=== PATIENT | female | born 1950 | race Caucasian/White ===

== ENCOUNTER 2021-05-16 16:32 | Emergency (ER) | payer MEDICARE ==
[2021-05-16] MEDS ORDERED: Acetaminophen 325 MG Tab PO ONE (17:22)
[2021-05-16] MEDS ORDERED: Ondansetron 4 MG/2 ML SDV IVPUSH ONE (17:23)
--- NOTE | 2021-05-16 18:28 | EDM.PDOC ---
ED HPI GENERAL MEDICAL PROBLEM - General Chief Complaint: General Stated Complaint: FEVER/L ARM PAIN Time Seen by Provider: 05/16/21 16:55 Source of Information: Reports: Patient History Limitations: Reports: No Limitations - History of Present Illness INITIAL COMMENTS - FREE TEXT/NARRATIVE: 70-year-old female presents to the emergency department with complaints of headache, diarrhea, cough, fever, bilateral arm numbness. Patient states that she is from [place] and was in [place] yesterday attending her mother's . She states that she had diarrhea throughout the day yesterday but did not think much of it. She states that today they have been traveling most of the day when about an hour prior to arrival in the emergency department she developed numbness to her bilateral arms, cough and chills. She states that they elected to stop in the ER. She states that when she arrived in the emergency department she developed headache pain as well. She has also had urinary frequency that started today. The patient states that she had her initial Covid vaccination on October 05, 2020 and then tested positive for Covid on October 11, 2020. Subsequently she has not had her 2nd Covid vaccination and planned on getting it when she returned to [place] from this trip. The patient is concerned she may have the delta variant of Covid. She is not a smoker. 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 She also has a history of hypertension and hyperlipidemia. The patient is not diabetic. Left Arm Pain Score (Numeric/FACES): 2 - Related Data Allergies Allergy/AdvReac Type Severity Reaction Status Date / Time lisinopril Allergy Severe Rash Verified 05/16/21 16:47 Home Meds: Home Meds Valsartan 160 mg PO DAILY 05/16/21 [History] Warfarin [Coumadin] 2 mg PO DAILY 05/16/21 [History] atenoloL [Atenolol] 100 mg PO DAILY 05/16/21 [History] hydroCHLOROthiazide [Hydrochlorothiazide] 2 tab PO DAILY 05/16/21 [History] Past Medical History Cardiovascular History: Reports: Blood Clots/VTE/DVT, Hypertension - Infectious Disease History Infectious Disease History: Reports: Novel Coronavirus - Past Surgical History Female Surgical History: Reports: Section Social & Family History - Tobacco Use Tobacco Use Status *Q: Never Tobacco User Second Hand Smoke Exposure: No - Recreational Drug Use Recreational Drug Use: No ED ROS GENERAL - Review of Systems Review Of Systems: Comprehensive ROS is negative, except as noted in HPI. ED EXAM, GENERAL - Physical Exam Exam: See Below Exam Limited By: No Limitations General Appearance: Alert, WD/WN, No Apparent Distress Ears: Normal External Exam, Hearing Grossly Normal Nose: Normal Inspection Throat/Mouth: Normal Inspection, Normal Lips, Normal Voice, No Airway Compromise Head: Atraumatic Neck: Normal Inspection, Supple, Non-Tender Respiratory/Chest: No Respiratory Distress, Lungs Clear, Normal Breath Sounds, No Accessory Muscle Use, Chest Non-Tender Cardiovascular: Normal Peripheral Pulses, Regular Rate, Rhythm, No Edema, No Murmur Peripheral Pulses: 2+: Radial (L), Radial (R) GI/Abdominal: Normal Bowel Sounds, Soft, Non-Tender, No Distention (Female) Exam: Deferred Rectal (Female) Exam: Deferred Back Exam: Normal Inspection Extremities: Normal Inspection, Normal Range of Motion, Non-Tender, No Pedal Edema, Normal Capillary Refill Neurological: Alert, Oriented, Normal Cognition Psychiatric: Normal Affect, Normal Mood Skin Exam: Warm, Dry, Intact, Normal Color, No Rash Lymphatic: No Adenopathy #1 Interpretation EKG Date: 05/16/21 Time: 18:10 Rhythm: NSR Rate (Beats/Min): 92 Fidelity: Normal P-Wave: Present QRS: Normal ST-T: Normal QT: Normal Comparison: NA - No Prior EKG EKG Interpretation Comments: Per Dr. Best interpretation: Normal sinus rhythm at 92 bpm; normal QRS; no ST changes Course - Vital Signs Text/Narrative:: As stated above the patient presents with diarrhea, chills, cough and headache. She is concerned she may have the delta variant of Covid. Upon assessment the patient skin is very hot to touch. Triage notes state that her temp was 98 0 however I do not believe this is accurate. She will be given 650 mg of Tylenol orally. Her assessment is essentially unremarkable. Lungs are clear. I have ordered labs to include a CBC, CMP, magnesium, C-reactive protein, lactic acid level, LDH, ferritin, D-dimer, PTT, INR, urinalysis with micro and culture if indicated, portable view of the chest, Covid swab, and an EKG. We will give her some Zofran as she states she is nauseated. Last Recorded V/S: Last Vital Signs Temp 101.5 F H 05/16/21 18:50 Pulse 88 05/16/21 16:49 Resp 20 05/16/21 16:49 BP 132/69 05/16/21 16:49 Pulse Ox 97 05/16/21 16:49 - Orders/Labs/Meds Orders: Active Orders 24 hr Category Date Time Status EKG Documentation Completion [RC] STAT Care 05/16/21 17:23 Active Chest 1V Frontal [CR] Stat Exams 05/16/21 17:21 Taken Isolation [COMM] Stat Oth 05/16/21 17:19 Ordered Labs: Laboratory Tests 05/16/21 05/16/21 05/16/21 Range/Units 17:48 17:48 17:48 WBC (3.98-10.04) K/mm3 RBC (3.98-5.22) M/mm3 Hgb (11.2-15.7) gm/dl Hct (34.1-44.9) % MCV (79.4-94.8) fl MCH (25.6-32.2) pg MCHC (32.2-35.5) g/dl RDW Std Deviation (36.4-46.3) fL Plt Count (182-369) K/mm3 MPV (9.4-12.3) fl Neut % (Auto) (34.0-71.1) % Lymph % (Auto) (19.3-51.7) % [place] % (Auto) (4.7-12.5) % Eos % (Auto) (0.7-5.8) Baso % (Auto) (0.1-1.2) % Neut # (Auto) (1.56-6.13) K/mm3 Lymph # (Auto) (1.18-3.74) K/mm3 [place] # (Auto) (0.24-0.36) K/mm3 Eos # (Auto) (0.04-0.36) K/mm3 Baso # (Auto) (0.01-0.08) K/mm3 Manual Slide Review PT 27.0 H (9.7-12.0) SECONDS INR 2.57 APTT 44.1 H (21.7-31.4) SECONDS D-Dimer, Quantitative < 0.19 L (0.19-0.50) mg/L Sodium 141 (136-145) mEq/L Potassium 3.9 (3.5-5.1) mEq/L Chloride 102 (98-107) mEq/L Carbon Dioxide 28 (21-32) mEq/L Anion Gap 14.9 (5-15) BUN 21 H (7-18) mg/dL Creatinine 1.2 H (0.55-1.02) mg/dL Est Cr Clr Drug Dosing 41.81 mL/min Estimated GFR (MDRD) 44 (>60) mL/min BUN/Creatinine Ratio 17.5 (14-18) Glucose 121 H (70-99) mg/dL Lactic Acid (0.4-2.0) mmol/L Calcium 9.1 (8.5-10.1) mg/dL Magnesium 1.7 L (1.8-2.4) mg/dL Ferritin 113 (8-252) ng/ml Total Bilirubin 0.7 (0.2-1.0) mg/dL AST 32 (15-37) U/L ALT 47 (14-59) U/L Alkaline Phosphatase 70 (46-116) U/L Lactate Dehydrogenase 221 (81-234) U/L C-Reactive Protein 1.7 H* (<1.0) mg/dL Total Protein 7.2 (6.4-8.2) g/dl Albumin 3.7 (3.4-5.0) g/dl Globulin 3.5 gm/dL Albumin/Globulin Ratio 1.1 (1-2) Urine Color (Yellow) Urine Appearance (Clear) Urine pH (5.0-8.0) Ur Specific [place] (1.005-1.030) Urine Protein (Negative) Urine Glucose (UA) (Negative) Urine Ketones (Negative) Urine Occult Blood (Negative) Urine Nitrite (Negative) Urine Bilirubin (Negative) Urine Urobilinogen (0.2-1.0) Ur Leukocyte Esterase (Negative) U Hyaline Cast (Auto) (0-5) /lpf Urine RBC (0-5) /hpf Urine WBC (0-5) /hpf Ur Squamous Epith Cells (0-5) /hpf Urine Bacteria (FEW) /hpf Urine Mucus (FEW) /hpf SARS-CoV-2 RNA (JOSE ELIAS) (NEGATIVE) 05/16/21 05/16/2105/16/21 Range/Units 17:48 17:48 17:52 WBC 9.72 (3.98-10.04) K/mm3 RBC 4.36 (3.98-5.22) M/mm3 Hgb 12.3 (11.2-15.7) gm/dl Hct 37.9 (34.1-44.9) % MCV 86.9 (79.4-94.8) fl MCH 28.2 (25.6-32.2) pg MCHC 32.5 (32.2-35.5) g/dl RDW Std Deviation 48.2 H (36.4-46.3) fL Plt Count 271 (182-369) K/mm3 MPV 9.2 L (9.4-12.3) fl Neut % (Auto) 88.5 H (34.0-71.1) % Lymph % (Auto) 6.4 L (19.3-51.7) % [place] % (Auto) 3.6 L (4.7-12.5) % Eos % (Auto) 1.2 (0.7-5.8) Baso % (Auto) 0.2 (0.1-1.2) % Neut # (Auto) 8.60 H (1.56-6.13) K/mm3 Lymph # (Auto) 0.62 L (1.18-3.74) K/mm3 [place] # (Auto) 0.35 (0.24-0.36) K/mm3 Eos # (Auto) 0.12 (0.04-0.36) K/mm3 Baso # (Auto) 0.02 (0.01-0.08) K/mm3 Manual Slide Review Abnormal smear PT (9.7-12.0) SECONDS INR APTT (21.7-31.4) SECONDS D-Dimer, Quantitative (0.19-0.50) mg/L Sodium (136-145) mEq/L Potassium (3.5-5.1) mEq/L Chloride (98-107) mEq/L Carbon Dioxide (21-32) mEq/L Anion Gap (5-15) BUN (7-18) mg/dL Creatinine (0.55-1.02) mg/dL Est Cr Clr Drug Dosing mL/min Estimated GFR (MDRD) (>60) mL/min BUN/Creatinine Ratio (14-18) Glucose (70-99) mg/dL Lactic Acid 2.7 H* (0.4-2.0) mmol/L Calcium (8.5-10.1) mg/dL Magnesium (1.8-2.4) mg/dL Ferritin (8-252) ng/ml Total Bilirubin (0.2-1.0) mg/dL AST (15-37) U/L ALT (14-59) U/L Alkaline Phosphatase (46-116) U/L Lactate Dehydrogenase (81-234) U/L C-Reactive Protein (<1.0) mg/dL Total Protein (6.4-8.2) g/dl Albumin (3.4-5.0) g/dl Globulin gm/dL Albumin/Globulin Ratio (1-2) Urine Color (Yellow) Urine Appearance (Clear) Urine pH (5.0-8.0) Ur Specific [place] (1.005-1.030) Urine Protein (Negative) Urine Glucose (UA) (Negative) Urine Ketones (Negative) Urine Occult Blood (Negative) Urine Nitrite (Negative) Urine Bilirubin (Negative) Urine Urobilinogen (0.2-1.0) Ur Leukocyte Esterase (Negative) U Hyaline Cast (Auto) (0-5) /lpf Urine RBC (0-5) /hpf Urine WBC (0-5) /hpf Ur Squamous Epith Cells (0-5) /hpf Urine Bacteria (FEW) /hpf Urine Mucus (FEW) /hpf SARS-CoV-2 RNA (JOSE ELIAS) Negative (NEGATIVE) 05/16/21 05/16/21 Range/Units 19:03 20:45 WBC (3.98-10.04) K/mm3 RBC (3.98-5.22) M/mm3 Hgb (11.2-15.7) gm/dl Hct (34.1-44.9) % MCV (79.4-94.8) fl MCH (25.6-32.2) pg MCHC (32.2-35.5) g/dl RDW Std Deviation (36.4-46.3) fL Plt Count (182-369) K/mm3 MPV (9.4-12.3) fl Neut % (Auto) (34.0-71.1) % Lymph % (Auto) (19.3-51.7) % [place] % (Auto) (4.7-12.5) % Eos % (Auto) (0.7-5.8) Baso % (Auto) (0.1-1.2) % Neut # (Auto) (1.56-6.13) K/mm3 Lymph # (Auto) (1.18-3.74) K/mm3 [place] # (Auto) (0.24-0.36) K/mm3 Eos # (Auto) (0.04-0.36) K/mm3 Baso # (Auto) (0.01-0.08) K/mm3 Manual Slide Review PT (9.7-12.0) SECONDS INR APTT (21.7-31.4) SECONDS D-Dimer, Quantitative (0.19-0.50) mg/L Sodium (136-145) mEq/L Potassium (3.5-5.1) mEq/L Chloride (98-107) mEq/L Carbon Dioxide (21-32) mEq/L Anion Gap (5-15) BUN (7-18) mg/dL Creatinine (0.55-1.02) mg/dL Est Cr Clr Drug Dosing mL/min Estimated GFR (MDRD) (>60) mL/min BUN/Creatinine Ratio (14-18) Glucose (70-99) mg/dL Lactic Acid 1.2 (0.4-2.0) mmol/L Calcium (8.5-10.1) mg/dL Magnesium (1.8-2.4) mg/dL Ferritin (8-252) ng/ml Total Bilirubin (0.2-1.0) mg/dL AST (15-37) U/L ALT (14-59) U/L Alkaline Phosphatase (46-116) U/L Lactate Dehydrogenase (81-234) U/L C-Reactive Protein (<1.0) mg/dL Total Protein (6.4-8.2) g/dl Albumin (3.4-5.0) g/dl Globulin gm/dL Albumin/Globulin Ratio (1-2) Urine Color Dark yellow (Yellow) Urine Appearance Slt cloudy H (Clear) Urine pH 6.5 (5.0-8.0) Ur Specific [place] 1.025 (1.005-1.030) Urine Protein 2+ H (Negative) Urine Glucose (UA) Negative (Negative) Urine Ketones Negative (Negative) Urine Occult Blood 2+ H (Negative) Urine Nitrite Positive H (Negative) Urine Bilirubin Negative (Negative) Urine Urobilinogen 0.2 (0.2-1.0) Ur Leukocyte Esterase Negative (Negative) U Hyaline Cast (Auto) 0-5 (0-5) /lpf Urine RBC 40-50 H (0-5) /hpf Urine WBC 0-5 (0-5) /hpf Ur Squamous Epith Cells 0-5 (0-5) /hpf Urine Bacteria Moderate H (FEW) /hpf Urine Mucus Not seen (FEW) /hpf SARS-CoV-2 RNA (JOSE ELIAS) (NEGATIVE) Meds: Medications Discontinued Medications Generic Name Dose Route Start Last Admin Trade Name Gama PRN Reason Stop Dose Admin Acetaminophen 650 mg 05/16/21 17:22 05/16/21 17:57 Acetaminophen 325 Mg Tab PO 05/16/21 17:23 650 mg NOW ONE Administration Sodium Chloride 1,000 mls @ 999 mls/hr 05/16/21 19:03 05/16/21 19:39 Normal Saline IV 05/16/21 20:03 999 mls/hr ONETIME ONE Administration Ondansetron HCl 4 mg 05/16/21 17:23 05/16/21 17:57 Ondansetron 4 Mg/2 Ml Sdv IVPUSH 05/16/21 17:24 4 mg ONETIME ONE Administration - Re-Assessments/Exams Free Text/Narrative Re-Assessment/Exam: 05/16/21 19:31 Hematology reveals a WBC of 9.72, hemoglobin 12.3, hematocrit 37.9, platelet count 271 Coagulation reveals a pro time of 27.0, INR 2.57, PTT 44.1, D-dimer less than 0.19 Chemistry reveals a sodium of 141, potassium 3.9, anion gap 14.9, BUN 21, creatinine 1.2, glucose 121, lactic acid 2.7, magnesium level 1.7, ferritin 113, total bilirubin 0.7, AST 32, ALT 47, alk phos 70, LDH 221, C-reactive protein 1.7 Urinalysis reveals 2+ protein, 2+ occult blood, nitrite positive, leukocyte Estrace negative micro is pending Patient is Covid negative Discussed the lab results with the patient. She reports that she is feeling much better. I am unsure of why the patient's lactic acid level would be elevated. Plan is to give her a liter of normal saline and repeat the lactic acid level. If this is trending downward I will allow her to be discharged and travel back home to follow-up with her primary care provider. 05/16/21 19:54 Nothing acute is appreciated on portable view of the chest. Official radiologist report is pending. 05/16/21 21:51 Repeat lactic acid level is 1.2. Patient will be discharged home. Departure - Departure Time of Disposition: 21:52 Disposition: Home, Self-Care 01 Condition: Good Clinical Impression: Fever and chills Headache Qualifiers: Headache type: unspecified Headache chronicity pattern: acute headache Intractability: intractable Qualified Code(s): R51.9 - Headache, unspecified - Discharge Information Referrals: PCP,Not In Area [Primary Care Provider] - Forms: ED Department Discharge Additional Instructions: You were seen in the emergency department today with headache, fever, cough and diarrhea. Labs were completed and your white blood cell count was within normal limits. Your INR was 2.57. Your lactic acid was elevated. I do not know the cause of this however you were given a liter of IV fluids and lactic acid was rechecked and was within normal limits. You likely had some sort of viral infection. Drink plenty of fluids and get some rest. Follow-up with your regular provider in about a week for reevaluation. Sepsis Event Note (ED) - Evaluation Sepsis Screening Result: No Definite Risk - Focused Exam Vital Signs: Vital Signs Temp Temp Pulse Resp BP Pulse Ox 05/16/21 18:50 101.5 F H 05/16/21 16:49 98 F 88 20 132/69 97 - My Orders Last 24 Hours: My Active Orders 05/16/21 17:19 Isolation [COMM] Stat 05/16/21 17:21 Chest 1V Frontal [CR] Stat 05/16/21 17:23 EKG Documentation Completion [RC] STAT - Assessment/Plan Last 24 Hours: My Active Orders 05/16/21 17:19 Isolation [COMM] Stat 05/16/21 17:21 Chest 1V Frontal [CR] Stat 05/16/21 17:23 EKG Documentation Completion [RC] STAT
[2021-05-16] MEDS ORDERED: Sodium Chloride 0.9% 1,000 ML IV ONE (19:03)
--- NOTE | 2021-05-17 07:37 | CR ---
Chest: Portable view of the chest was obtained. Comparison: No prior chest imaging is available. Heart size and mediastinum are normal. Lungs are clear with no acute parenchymal change. Bony structures show nothing definitely acute. Impression: 1. Nothing acute is appreciated on portable chest x-ray. Diagnostic code #1
== END 2021-05-16 22:04 | disposition home or self-care (01) ==
LOC: JD.ED 16:32
DX: R51.9 Headache, unspecified (principal); R50.9 Fever, unspecified; I10 Essential (primary) hypertension; Z86.718 Personal history of other venous thrombosis and embolism; Z88.8 Allergy status to other drugs, medicaments and biological substances; Z79.01 Long term (current) use of anticoagulants; Z79.899 Other long term (current) drug therapy; Z20.822 Contact with and (suspected) exposure to COVID-19
CPT/HCPCS: 36415; 71045; 80053; 81001; 82728; 83605; 83615; 83735; 85025; 85379; 85610; 85730; 86140; 93005; 96374; 99284; A9270; J2405; J7030; U0002; 93010; 99283

== ENCOUNTER 2021-05-18 05:11 | Inpatient (IN) | payer MEDICARE ==
[2021-05-18] MEDS ORDERED: Sodium Chloride 0.9% 1,000 ML IV ONE ×2 (05:51→08:30)
--- NOTE | 2021-05-18 06:08 | EDM.PDOC ---
<Patrice Lira Amy - Last Filed: 05/18/21 06:56> ED HPI GENERAL MEDICAL PROBLEM - General Chief Complaint: Respiratory Problem Stated Complaint: SOB/CHEST PRESSURE Time Seen by Provider: 05/18/21 05:21 Source of Information: Reports: Patient, Family (), Old Records (ED visit 05/16/2021) - History of Present Illness INITIAL COMMENTS - FREE TEXT/NARRATIVE: Mrs. Dimas is a very pleasant 70-year-old woman who states that she received an initial Pfizer COVID vaccination on 10/05/2020, then developed symptoms of a cough, dyspnea, and retrosternal chest pressure on 10/11/2020. She tested positive for the virus on 10/17/2020. She was treated with monoclonal antibodies, but she states that she never fully recovered. The patient and her live in [place], but are in this area in order to attend her mother's in [place]. She was seen in this ED 2 days ago, on 05/16/2021, stating that she had a fever, cough, headache, bilateral arm numbness, diarrhea, and urinary frequency, all of which had developed within 24 hours. She was found to be hemodynamically stable, but with a fever of 101.5 degrees. Her oxygen saturation was 97% on room air. Her physical exam was unremarkable. Work-up included a CBC, CMP, magnesium level, lactic acid level, CRP, LDH, ferritin level, D-dimer, coags, a swab for the SARS-CoV-2 virus, a urinalysis, a portable chest x-ray, and an ECG. Her work-up was grossly unremarkable, but notable for a urinalysis with slightly cloudy appearance, 2+ occult blood with 40-50 RBCs, leukocyte esterase negative with 0- 5 WBCs, nitrite positive with moderate bacteria, and 0-5 squamous epithelial cells. Her initial lactic acid level was modestly elevated at 2.7, but, after 1 L of IV fluid, decreased to 1.2. The remainder of her work-up was unremarkable. After the IV fluid, the patient felt much better, and she was discharged home with a diagnosis of a viral infection. She was instructed to drink plenty of fluids and get rest, then follow-up with her PCP once she returned home. The patient now returns the ED stating that she woke around 3:00 this morning with worsening dyspnea and retrosternal chest pressure, not a pain, both worse when supine. She states that her symptoms are similar to those that she experienced when she had COVID-19 in October, except that she does not currently have a cough like she did back then. She reports having a fever of 100.5 degrees this morning, along with severe chills. She reports having some nausea, but no vomiting. She denies current urinary symptoms. She states that her headache has persisted for the past 2 days. The patient states that she has been taking Tylenol #3 for her pain, with her most recent dose at 23:00 last night. Here in the ED this morning, the patient is found to be hemodynamically stable, afebrile, saturating 90% on room air. She is talkative, in no acute distress. The patient denies having a recent sore throat, ear pain, nasal or sinus congestion, cough, palpitations, vomiting, constipation, abdominal pain, recent weight gain or weight loss, recent bloody bowel movements or black bowel movements, recent joint aches, headaches, or rashes. The patient and her are visiting from [place], [place]. - Related Data Allergies Allergy/AdvReac Type Severity Reaction Status Date / Time lisinopril Allergy Severe Rash Verified 05/18/21 05:19 Home Meds: Home Meds Valsartan 160 mg PO DAILY 05/16/21 [History] Warfarin [Coumadin] 2 mg PO SUMOWEFRSA 05/16/21 [History] atenoloL [Atenolol] 100 mg PO DAILY 05/16/21 [History] hydroCHLOROthiazide [Hydrochlorothiazide] 25 mg PO DAILY 05/16/21 [History] Rosuvastatin Calcium 40 mg PO DAILY 05/18/21 [History] Warfarin [Coumadin] 1 mg PO TUTH 05/18/21 [History] Past Medical History Cardiovascular History: Reports: Blood Clots/VTE/DVT (DVT x 2, on coumadin), High Cholesterol, Hypertension Endocrine/Metabolic History: Reports: Obesity/BMI 30+ Hematologic History: Reports: Other (See Below) (Factor V Leiden mutation) - Infectious Disease History Infectious Disease History: Reports: Novel Coronavirus (dx'd 10/17/2020) - Past Surgical History HEENT Surgical History: Reports: Oral Surgery (dental extractions) Cardiovascular Surgical History: Reports: Vascular Surgery (LLE venous thrombectomy) Female Surgical History: Reports: Section (x 1) Social & Family History - Tobacco Use Tobacco Use Status *Q: Former Tobacco User Years of Tobacco use: 5 Packs/Tins Daily: 0.2 Month/Year Tobacco Last Used: Quit 1971 Tobacco Use Comment: Started smoking 1966 - Alcohol Use Alcohol Use History: Yes Alcohol Use Frequency: Socially - Recreational Drug Use Recreational Drug Use: No - Living Situation & Occupation Living situation: Reports: , with Spouse, with Family (33 yo son) Occupation: Retired (RN) ED ROS GENERAL - Review of Systems Review Of Systems: Comprehensive ROS is negative, except as noted in HPI. ED EXAM, GENERAL - Physical Exam Exam: See Below Exam Limited By: No Limitations General Appearance: Alert, WD/WN, No Apparent Distress Eye Exam: Bilateral Eye: EOMI, Normal Inspection Ears: Normal External Exam, Hearing Grossly Normal Nose: Normal Inspection Throat/Mouth: Normal Inspection, Normal Lips, Normal Voice, No Airway Compromise Head: Atraumatic, Normocephalic Neck: Normal Inspection, Full Range of Motion Respiratory/Chest: No Respiratory Distress, Lungs Clear, Normal Breath Sounds, No Accessory Muscle Use, Chest Non-Tender. No: Decreased Breath Sounds, Crackles, Rhonchi, Wheezing, Stridor, Prolonged Expiration Cardiovascular: Normal Peripheral Pulses, Regular Rate, Rhythm, No Edema, No Gallop, No JVD, No Murmur, No Rub Peripheral Pulses: 3+: Radial (L), Radial (R) GI/Abdominal: Normal Bowel Sounds, Soft, Non-Tender, No Organomegaly, No Distention, No Abnormal Bruit, No Mass Back Exam: Normal Inspection, Full Range of Motion, NT Extremities: Normal Inspection, Normal Range of Motion, No Pedal Edema, Normal Capillary Refill Neurological: Alert, Oriented, Normal Cognition, No Motor/Sensory Deficits Psychiatric: Normal Affect Skin Exam: Warm, Dry, Intact, Normal Color, No Rash #1 Interpretation EKG Date: 05/18/21 Time: 05:25 Rhythm: NSR Rate (Beats/Min): 72 [place]: Normal P-Wave: Present QRS: Other (Late transition) ST-T: Normal QT: Normal Comparison: No Change (05/16/2021) Course - Re-Assessments/Exams Free Text/Narrative Re-Assessment/Exam: 05/18/21 05:52 As above, the patient was diagnosed with COVID-19 on 10/17/2020, and never fully recovered. She was seen in this ED 2 days ago for symptoms of a fever, cough, headache, bilateral arm numbness, diarrhea, and urinary frequency. Her work-up was remarkable for an abnormal urine and a mildly elevated lactic acid level. Unfortunately, no blood or urine cultures were ordered. She felt better following a liter of IV fluid, and was discharged home with no prescriptions, however, has now returned stating that she developed worsening dyspnea and retrosternal chest discomfort, both worse when supine, around 3:00 this morning. She states that she has still had a fever and chills, and that her headache has persisted. She has had nausea without vomiting. Her oxygen saturation is 90% on room air. Her physical exam is unremarkable. An ECG, obtained at triage, shows no ischemic changes. I have ordered a work-up that includes orthostatics, numerous blood tests, 2 sets of blood cultures, an ABG, a swab for the SARS-CoV-2 virus, a urinalysis, and a chest x-ray. In the meantime, the patient will be given a liter of IV fluid. 05/18/21 06:17 The patient is not orthostatic. Notified that the patient's oxygen saturation has decreased to about 86% on room air. We will start some supplemental oxygen. 05/18/21 06:56 Two-view chest radiograph appears to be grossly normal. The cardiac silhouette is within normal limits. No pulmonary vascular congestion. No pleural effusions. No focal infiltrate. No pneumothorax. Formal read per the Radiologist pending. The patient's CBC is remarkable for a Hgb slightly depressed at 11.1, but with a Hct within normal limits at 35.0, with remainder of her CBC being unremarkable. Her CMP is remarkable for a BUN/Cr slightly elevated at 22/1.2, and mild hyperglycemia of 146, with remainder of her CMP being unremarkable. Her magnesium level is within normal limits at 1.8. Her lactic acid level is within normal limits at 1.1. Her TSH is elevated at 7.406. Her CRP is significantly elevated at 10.0. Her troponin is undetectably low. Her INR is subtherapeutic at 1.83. Her ABG represents an acute metabolic alkalosis with concomitant respiratory alkalosis, and hypoxemia. The results of the patient's pro-BNP and swab for the SARS-CoV-2 virus are still pending. The patient has not yet provided a urine sample for the urinalysis. Case discussed with Dr. Clitfon, and care of the patient turned over to him at this time, for change of shift. Departure - Departure Disposition: Admitted As Inpatient 65 Clinical Impression: Acute febrile illness, Hypoxia, Mild congestive heart failure Hypotension Qualifiers: Hypotension type: unspecified hypotension type Qualified Code(s): I95.9 - Hypotension, unspecified Hypothyroidism Qualifiers: Hypothyroidism type: acquired Qualified Code(s): E03.9 - Hypothyroidism, unspecified - Discharge Information Referrals: PCP,Not In Area [Primary Care Provider] - Forms: ED Department Discharge Sepsis Event Note (ED) - Evaluation Sepsis Screening Result: No Definite Risk <Dominic Clifton - Last Filed: 05/18/21 08:50> Course - Vital Signs Last Recorded V/S: Last Vital Signs Temp 37.7 C 05/18/21 07:48 Pulse 73 05/18/21 05:19 Resp 16 05/18/21 05:19 BP 97/61 05/18/21 05:19 Pulse Ox 94 L 05/18/21 06:21 Orthostatic Blood Pressure [ 93/50 Standing] Orthostatic Blood Pressure [ 93/52 Sitting] Orthostatic Blood Pressure [ 105/49 Supine] - Orders/Labs/Meds Orders: Active Orders 24 hr Category Date Time Status EKG Documentation Completion [RC] STAT Care 05/18/21 05:49 Active Orthostatic Vital Signs [RC] STAT Care 05/18/21 05:48 Active BLOOD CULTURE [MREF] Stat Lab 05/18/21 06:15 Received BLOOD CULTURE [MREF] Stat Lab 05/18/21 06:25 Received DD [D-DIMER QUANTITATIVE] [COAG] Stat Lab 05/18/21 05:30 Received Sodium Chloride 0.9% [Normal Saline] 1,000 ml Med 05/18/21 08:30 Active IV ONETIME cefTRIAXone [Rocephin] 2 gm Med 05/18/21 08:18 Active Sodium Chloride 0.9% [Normal Saline] 100 ml IV ONETIME Blood Culture x2 Reflex Set [OM.PC] Stat Oth 05/18/21 05:50 Ordered Medication Orders Ceftriaxone Sodium 2 gm/ (Sodium Chloride) 100 mls @ 200 mls/hr IV ONETIME ONE Stop: 05/18/21 08:47 Last Admin: 05/18/21 08:31 Dose: 200 mls/hr Documented by: RAYSHAWN Sodium Chloride (Normal Saline) 1,000 mls @ 900 mls/hr IV ONETIME ONE Stop: 05/18/21 09:36 Labs: Laboratory Tests 05/18/21 05/18/21 05/18/21 Range/Units 05:30 05:30 05:30 WBC 7.00 (3.98-10.04) K/mm3 RBC 3.95 L (3.98-5.22) M/mm3 Hgb 11.1 L (11.2-15.7) gm/dl Hct 35.0 (34.1-44.9) % MCV 88.6 (79.4-94.8) fl MCH 28.1 (25.6-32.2) pg MCHC 31.7 L (32.2-35.5) g/dl RDW Std Deviation 50.2 H (36.4-46.3) fL Plt Count 235 (182-369) K/mm3 MPV 8.9 L (9.4-12.3) fl Neutrophils % (Manual) 77 H (40-60) % Band Neutrophils % 0 (0-10) % Lymphocytes % (Manual) 16 L (20-40) % Atypical Lymphs % 0 % Monocytes % (Manual) 2 (2-10) % Eosinophils % (Manual) 5 (0.7-5.8) % Basophils % (Manual) 0 L (0.1-1.2) Platelet Estimate Adequate Polychromasia 1+ slight Anisocytosis 1+ sligh RBC Morph Comment Abnormal PT 19.3 H (9.7-12.0) SECONDS INR 1.83 Puncture Site ABG pH (7.35-7.45) ABG pCO2 (35.0-45.0) mmHg ABG pO2 (80.0-100.0) mmHg ABG HCO3 (22.0-26.0) meq/L ABG O2 Saturation (96.0-97.0) % ABG Base Excess (-2-2.0) Moses Test A-a Gradient mmHg O2 Delivery Device FiO2 (21.00-100.00) % Sodium 139 (136-145) mEq/L Potassium 3.8 (3.5-5.1) mEq/L Chloride 101 (98-107) mEq/L Carbon Dioxide 29 (21-32) mEq/L Anion Gap 12.8 (5-15) BUN 22 H (7-18) mg/dL Creatinine 1.2 H (0.55-1.02) mg/dL Est Cr Clr Drug Dosing 41.81 mL/min Estimated GFR (MDRD) 44 (>60) mL/min BUN/Creatinine Ratio 18.3 H (14-18) Glucose 146 H (70-99) mg/dL Lactic Acid (0.4-2.0) mmol/L Calcium 8.5 (8.5-10.1) mg/dL Magnesium 1.8 (1.8-2.4) mg/dL Total Bilirubin 0.9 (0.2-1.0) mg/dL AST 39 H (15-37) U/L ALT 41 (14-59) U/L Alkaline Phosphatase 67 (46-116) U/L Troponin I < 0.017 (0.00-0.056) ng/mL C-Reactive Protein 10.0 H* (<1.0) mg/dL NT-Pro-B Natriuret Pep (0-125) pg/mL Total Protein 6.8 (6.4-8.2) g/dl Albumin 3.2 L (3.4-5.0) g/dl Globulin 3.6 gm/dL Albumin/Globulin Ratio 0.9 L (1-2) TSH 3rd Generation 7.406 H (0.358-3.74) uIU/mL Urine Color (Yellow) Urine Appearance (Clear) Urine pH (5.0-8.0) Ur Specific [place] (1.005-1.030) Urine Protein (Negative) Urine Glucose (UA) (Negative) Urine Ketones (Negative) Urine Occult Blood (Negative) Urine Nitrite (Negative) Urine Bilirubin (Negative) Urine Urobilinogen (0.2-1.0) Ur Leukocyte Esterase (Negative) Urine RBC (0-5) /hpf Urine WBC (0-5) /hpf Ur Epithelial Cells (0-5) /hpf Urine Bacteria (FEW) /hpf Urine Mucus (FEW) /hpf SARS-CoV-2 RNA (JOSE ELIAS) (NEGATIVE) 05/18/21 05/18/21 05/18/21 Range/Units 05:30 05:30 05:57 WBC (3.98-10.04) K/mm3 RBC (3.98-5.22) M/mm3 Hgb (11.2-15.7) gm/dl Hct (34.1-44.9) % MCV (79.4-94.8) fl MCH (25.6-32.2) pg MCHC (32.2-35.5) g/dl RDW Std Deviation (36.4-46.3) fL Plt Count (182-369) K/mm3 MPV (9.4-12.3) fl Neutrophils % (Manual) (40-60) % Band Neutrophils % (0-10) % Lymphocytes % (Manual) (20-40) % Atypical Lymphs % % Monocytes % (Manual) (2-10) % Eosinophils % (Manual) (0.7-5.8) % Basophils % (Manual) (0.1-1.2) Platelet Estimate Polychromasia Anisocytosis RBC Morph Comment PT (9.7-12.0) SECONDS INR Puncture Site ABG pH (7.35-7.45) ABG pCO2 (35.0-45.0) mmHg ABG pO2 (80.0-100.0) mmHg ABG HCO3 (22.0-26.0) meq/L ABG O2 Saturation (96.0-97.0) % ABG Base Excess (-2-2.0) Moses Test A-a Gradient mmHg O2 Delivery Device FiO2 (21.00-100.00) % Sodium (136-145) mEq/L Potassium (3.5-5.1) mEq/L Chloride (98-107) mEq/L Carbon Dioxide (21-32) mEq/L Anion Gap (5-15) BUN (7-18) mg/dL Creatinine (0.55-1.02) mg/dL Est Cr Clr Drug Dosing mL/min Estimated GFR (MDRD) (>60) mL/min BUN/Creatinine Ratio (14-18) Glucose (70-99) mg/dL Lactic Acid 1.1 (0.4-2.0) mmol/L Calcium (8.5-10.1) mg/dL Magnesium (1.8-2.4) mg/dL Total Bilirubin (0.2-1.0) mg/dL AST (15-37) U/L ALT (14-59) U/L Alkaline Phosphatase (46-116) U/L Troponin I (0.00-0.056) ng/mL C-Reactive Protein (<1.0) mg/dL NT-Pro-B Natriuret Pep 662 H (0-125) pg/mL Total Protein (6.4-8.2) g/dl Albumin (3.4-5.0) g/dl Globulin gm/dL Albumin/Globulin Ratio (1-2) TSH 3rd Generation (0.358-3.74) uIU/mL Urine Color (Yellow) Urine Appearance (Clear) Urine pH (5.0-8.0) Ur Specific [place] (1.005-1.030) Urine Protein (Negative) Urine Glucose (UA) (Negative) Urine Ketones (Negative) Urine Occult Blood (Negative) Urine Nitrite (Negative) Urine Bilirubin (Negative) Urine Urobilinogen (0.2-1.0) Ur Leukocyte Esterase (Negative) Urine RBC (0-5) /hpf Urine WBC (0-5) /hpf Ur Epithelial Cells (0-5) /hpf Urine Bacteria (FEW) /hpf Urine Mucus (FEW) /hpf SARS-CoV-2 RNA (JOSE ELIAS) Negative (NEGATIVE) 05/18/21 05/18/21 Range/Units 06:00 08:03 WBC (3.98-10.04) K/mm3 RBC (3.98-5.22) M/mm3 Hgb (11.2-15.7) gm/dl Hct (34.1-44.9) % MCV (79.4-94.8) fl MCH (25.6-32.2) pg MCHC (32.2-35.5) g/dl RDW Std Deviation (36.4-46.3) fL Plt Count (182-369) K/mm3 MPV (9.4-12.3) fl Neutrophils % (Manual) (40-60) % Band Neutrophils % (0-10) % Lymphocytes % (Manual) (20-40) % Atypical Lymphs % % Monocytes % (Manual) (2-10) % Eosinophils % (Manual) (0.7-5.8) % Basophils % (Manual) (0.1-1.2) Platelet Estimate Polychromasia Anisocytosis RBC Morph Comment PT (9.7-12.0) SECONDS INR Puncture Site Lt radial ABG pH 7.46 H (7.35-7.45) ABG pCO2 37.5 (35.0-45.0) mmHg ABG pO2 62.0 L (80.0-100.0) mmHg ABG HCO3 26.2 H (22.0-26.0) meq/L ABG O2 Saturation 90.9 L (96.0-97.0) % ABG Base Excess 2.8 H (-2-2.0) Moses Test Positive A-a Gradient 40 mmHg O2 Delivery Device Room air FiO2 21.00 (21.00-100.00) % Sodium (136-145) mEq/L Potassium (3.5-5.1) mEq/L Chloride (98-107) mEq/L Carbon Dioxide (21-32) mEq/L Anion Gap (5-15) BUN (7-18) mg/dL Creatinine (0.55-1.02) mg/dL Est Cr Clr Drug Dosing mL/min Estimated GFR (MDRD) (>60) mL/min BUN/Creatinine Ratio (14-18) Glucose (70-99) mg/dL Lactic Acid (0.4-2.0) mmol/L Calcium (8.5-10.1) mg/dL Magnesium (1.8-2.4) mg/dL Total Bilirubin (0.2-1.0) mg/dL AST (15-37) U/L ALT (14-59) U/L Alkaline Phosphatase (46-116) U/L Troponin I (0.00-0.056) ng/mL C-Reactive Protein (<1.0) mg/dL NT-Pro-B Natriuret Pep (0-125) pg/mL Total Protein (6.4-8.2) g/dl Albumin (3.4-5.0) g/dl Globulin gm/dL Albumin/Globulin Ratio (1-2) TSH 3rd Generation (0.358-3.74) uIU/mL Urine Color Trevor H (Yellow) Urine Appearance Clear (Clear) Urine pH 5.5 (5.0-8.0) Ur Specific [place] 1.015 (1.005-1.030) Urine Protein 1+ H (Negative) Urine Glucose (UA) Trace H (Negative) Urine Ketones Negative (Negative) Urine Occult Blood 1+ H (Negative) Urine Nitrite Positive H (Negative) Urine Bilirubin Negative (Negative) Urine Urobilinogen 1.0 (0.2-1.0) Ur Leukocyte Esterase Negative (Negative) Urine RBC 20-30 H (0-5) /hpf Urine WBC 0-5 (0-5) /hpf Ur Epithelial Cells 0-5 (0-5) /hpf Urine Bacteria Few (FEW) /hpf Urine Mucus Few (FEW) /hpf SARS-CoV-2 RNA (JOSE ELIAS) (NEGATIVE) Meds: Medications Generic Name Dose Route Start Last Admin Trade Name Freq PRN Reason Stop Dose Admin Ceftriaxone Sodium 2 gm/ 100 mls @ 200 mls/hr 05/18/21 08:18 05/18/21 08:31 Sodium Chloride IV 05/18/21 08:47 200 mls/hr ONETIME ONE Administration Sodium Chloride 1,000 mls @ 900 mls/hr 05/18/21 08:30 Normal Saline IV 05/18/21 09:36 ONETIME ONE Discontinued Medications Generic Name Dose Route Start Last Admin Trade Name Freq PRN Reason Stop Dose Admin Acetaminophen 975 mg 05/18/21 07:37 05/18/21 07:48 Acetaminophen 325 Mg Tab PO 05/18/21 07:38 975 mg ONETIME ONE Administration Furosemide 40 mg 05/18/21 07:37 05/18/21 07:49 Furosemide 40 Mg/4 Ml Vial IVPUSH 05/18/21 07:38 40 mg NOW ONE Administration Sodium Chloride 1,000 mls @ 999 mls/hr 05/18/21 05:51 05/18/21 06:03 Normal Saline IV 05/18/21 06:51 999 mls/hr ONETIME ONE Administration Levothyroxine Sodium 75 mcg 05/18/21 07:40 05/18/21 07:48 Levothyroxine 75 Mcg Tab PO 05/18/21 07:41 75 mcg ONETIME ONE Administration - Re-Assessments/Exams Free Text/Narrative Re-Assessment/Exam: 05/18/21 07:[address] Lira at change of shift. Labs reviewed. Subclinical hypothyroidism. Patient's BNP is mildly elevated at 662. Urinalysis is pending as is the COVID-19 status. 05/18/21 07:31 COVID-19 screen is negative as well. I have discussed the findings of the current labs with the patient and her . On examination she is indeed febrile. She will be given Tylenol 975 mg p.o. We will give her Lasix 40 mg IV due to mild CHF with a BNP of 662. This should produce a urine for analysis with concerns for possible UTI. She will need to be started on a dose of levothyroxine as well. I will give her 75 mcg of levothyroxine orally now. 05/18/21 08:20 Patient has voided and the urine is quite orange in color. She reports she is taking Azo which may alter the urinalysis. O2 sats are 88 to 90% on room air. On 2 L she is 94 to 95%. BP is 90/68. She is normally hypertensive. She has been running low however. Concern for possible underlying sepsis developing with fever, elevated CRP, hypoxia, and hypotension. I am going to start her on Rocephin 2 g IV due to fever and elevated CRP sug gesting underlying bacterial infection which at this point time is of unclear origin. She did complete a liter of IV fluids. I am going to start her on normal saline at 900 mils an hour with Rocephin. I will speak to Dr. Aguilar--on-call hospitalist in regards to admission. 05/18/21 08:44 I have spoken with Dr. Aguilar and the plan will be to admit the patient to med surgery at this time.Urinalysis shows it to be trevor in color 1+ proteinuria trace of glucose 1+ occult blood positive nitrate negative leukocyte esterase with 20-30 RBCs per high-power field and 0-5 white blood cells. Source of infection is unclear. Concern for developing sepsis. Hopefully will show up on blood culture. Departure - Departure Time of Disposition: 08:47 Condition: Fair - Discharge Information *PRESCRIPTION DRUG MONITORING PROGRAM REVIEWED*: Not Applicable *COPY OF PRESCRIPTION DRUG MONITORING REPORT IN PATIENT HENRIQUE: Not Applicable Sepsis Event Note (ED) - Focused Exam Vital Signs: Vital Signs Temp Temp Pulse Resp BP Pulse Ox 05/18/21 07:48 37.7 C 05/18/21 06:21 94 L 05/18/21 05:19 36.5 C 73 16 97/61 90 L - My Orders Last 24 Hours: My Active Orders 05/18/21 05:30 DD [D-DIMER QUANTITATIVE] [COAG] Stat 05/18/21 08:18 cefTRIAXone [Rocephin] 2 gm Sodium Chloride 0.9% [Normal Saline] 100 ml IV ONETIME 05/18/21 08:30 Sodium Chloride 0.9% [Normal Saline] 1,000 ml IV ONETIME - Assessment/Plan Last 24 Hours: My Active Orders 05/18/21 05:30 DD [D-DIMER QUANTITATIVE] [COAG] Stat 05/18/21 08:18 cefTRIAXone [Rocephin] 2 gm Sodium Chloride 0.9% [Normal Saline] 100 ml IV ONETIME 05/18/21 08:30 Sodium Chloride 0.9% [Normal Saline] 1,000 ml IV ONETIME
[2021-05-18] MEDS ORDERED: Furosemide 40 MG/4 ML VIAL IVPUSH ONE (07:37)
[2021-05-18] MEDS ORDERED: Acetaminophen 325 MG Tab PO ONE (07:37)
[2021-05-18] MEDS ORDERED: Levothyroxine 75 MCG Tab PO ONE (07:40)
--- NOTE | 2021-05-18 07:57 | CR ---
Chest: 2 views of the chest were obtained. Comparison: Prior chest x-ray of 05/16/21. Heart size and mediastinum are within normal limits. Lung markings are slightly increased which appear to be stable from prior chest x-ray. No acute parenchymal change is seen. Mild scattered disc space narrowing within the spine with endplate osteophytes. Mild scoliosis is noted. Impression: 1. Stable chest x-ray from previous exam. 2. Nothing acute is definitely appreciated. Diagnostic code #2
[2021-05-18] MEDS ORDERED: cefTRIAXone 2 GM in Sodium Chloride 0.9% 100 ML IV ONE (08:18)
[2021-05-18] MEDS ORDERED: oxyCODONE 5 MG Tab PO PRN (09:18)
[2021-05-18] MEDS ORDERED: Ondansetron 4 MG/2 ML SDV IV PRN (09:18)
[2021-05-18] MEDS ORDERED: Heparin Sodium 5,000 Units/ML Vial SUBCUT SCH (09:30)
[2021-05-18] MEDS ORDERED: Lactated Ringers 1,000 ML IV SCH (09:30)
[2021-05-18] MEDS ORDERED: Morphine 2 MG/ML SYRINGE IVPUSH PRN (10:08)
[2021-05-18] MEDS ORDERED: Sennosides 8.6 MG Tab PO PRN (13:00)
--- NOTE | 2021-05-18 13:02 | PCM.HP.2 ---
H&P History of Present Illness - General Date of Service: 05/18/21 Admit Problem/Dx: Admission Diagnosis/Problem Admission Diagnosis/Problem Fever Source of Information: Patient History Limitations: Reports: No Limitations - History of Present Illness Initial Comments - Free Text/Narative: This is a 70F with PMhx noted below including hx of DVT (On warfarin), hx of COVID 19 PNA in October presenting for evaluation of Fever. The patient was seen in ED two days ago for evaluation of fever. She was ultimately discharged home. She has been commuting from [facility] to attend a in [place]. She has traveled by car. Today she developed a recurrent fever and thus presented back to ED for evaluation. She was noted to be hypoxic requiring supplemental oxygen. She denies chest pain but endorses chest pressure. She denies SOB. She endorses dysuria. In the ED her BNP was initially elevated. She was given lasix but subsequently became hypotensive and thus IVF was started. Her WBC and Lactate where WNL. She was started on ceftriaxone and admitted for further evaluation. - Related Data Allergies/Adverse Reactions: Allergies Allergy/AdvReac Type Severity Reaction Status Date / Time lisinopril Allergy Severe Rash Verified 05/18/21 05:19 Home Medications: Home Meds Valsartan 160 mg PO DAILY 05/16/21 [History] Warfarin [Coumadin] 1 - 2 mg PO ASDIRECTED 05/16/21 [History] atenoloL [Atenolol] 100 mg PO DAILY 05/16/21 [History] hydroCHLOROthiazide [Hydrochlorothiazide] 25 mg PO DAILY 05/16/21 [History] Phenazopyridine HCl [Pyridium] 1 tab PO DAILY 05/18/21 [History] Rosuvastatin Calcium 40 mg PO DAILY 05/18/21 [History] Past Medical History HEENT History: Reports: Other (See Below) Other HEENT History: dry eyes Cardiovascular History: Reports: Blood Clots/VTE/DVT, High Cholesterol, Hypertension, Other (See Below) Other Cardiovascular History: high triglycerides Respiratory History: Reports: Bronchitis, Recurrent Gastrointestinal History: Reports: Chronic Constipation Genitourinary History: Reports: Retention, Urinary Endocrine/Metabolic History: Reports: Diabetes, Gestational, Obesity/BMI 30+, Other (See Below) Other Endocrine/Metabolic History: prediabetic Hematologic History: Reports: Other (See Below) Other Hematologic History: Factor V, blood clots - Infectious Disease History Infectious Disease History: Reports: Novel Coronavirus Other Infectious Disease History: COVID 10/2020 - Past Surgical History HEENT Surgical History: Reports: Oral Surgery Cardiovascular Surgical History: Reports: Vascular Surgery Female Surgical History: Reports: Section Social & Family History - Family History Cardiac: Reports: [place], Other (See Below) Other Cardiac Family History: heart stents - Tobacco Use Tobacco Use Status *Q: Former Tobacco User Years of Tobacco use: 5 Packs/Tins Daily: 0.2 Used Tobacco, but Quit: Yes Month/Year Tobacco Last Used: 1976 Tobacco Use Comment: Started smoking 1966 - Caffeine Use Caffeine Use: Reports: Coffee, Soda, Tea - Alcohol Use Days Per Week of Alcohol Use: 1 Number of Drinks Per Day: 1 Total Drinks Per Week: 1 Date of Last Drink: 05/16/21 Time of Last Drink: 19:00 - Recreational Drug Use Recreational Drug Use: Yes Drug Use in Last 12 Months: No Recreational Drug Type: Reports: Marijuana/Hashish Recreational Drug Use Frequency: Not Used In Over 6 Months Recreational Drug Last Use: 1969 - Living Situation & Occupation Living situation: Reports: , with Spouse, with Family (33 yo son) Occupation: Retired (RN) H&P Review of Systems - Review of Systems: Review Of Systems: Comprehensive ROS is negative, except as noted in HPI. Exam - Exam Exam: See Below - Vital Signs Vital Signs: Last Vital Signs Temp 98.4 F 05/18/21 12:19 Pulse 64 05/18/21 12:25 Resp 20 05/18/21 12:19 BP 119/93 H 05/18/21 12:25 Pulse Ox 97 05/18/21 12:25 Orthostatic Blood Pressure [ 93/50 Standing] Orthostatic Blood Pressure [ 93/52 Sitting] Orthostatic Blood Pressure [ 105/49 Supine] Weight: 221 lb - Exam Quality Assessment: Supplemental Oxygen General: Alert, Oriented, Cooperative HEENT: Conjunctiva Clear, EOMI, Mucosa Moist & [place], Nares Patent Neck: Supple Lungs: Clear to Auscultation, Normal Respiratory Effort Cardiovascular: Regular Rhythm, Normal S1, Normal S2 GI/Abdominal Exam: Soft, Non-Tender, No Distention Extremities: Normal Inspection, No Pedal Edema Skin: Warm, Dry, Intact Neurological: Cranial Nerves Intact, Normal Speech Neuro Extensive - Mental Status: Alert, Oriented x3, Normal Mood/Affect, Normal Cognition, Memory Intact Neuro Extensive - Motor, Sensory, Reflexes: CN II-XII Intact Psychiatric: Alert, Normal Affect, Normal Mood - Patient Data Lab Results Last 24 hrs: Laboratory Results - last 24 hr 05/18/21 05/18/21 05/18/21 Range/Units 05:30 05:30 05:30 WBC 7.00 (3.98-10.04) K/mm3 RBC 3.95 L (3.98-5.22) M/mm3 Hgb 11.1 L (11.2-15.7) gm/dl Hct 35.0 (34.1-44.9) % MCV 88.6 (79.4-94.8) fl MCH 28.1 (25.6-32.2) pg MCHC 31.7 L (32.2-35.5) g/dl RDW Std Deviation 50.2 H (36.4-46.3) fL Plt Count 235 (182-369) K/mm3 MPV 8.9 L (9.4-12.3) fl Neutrophils % (Manual) 77 H (40-60) % Band Neutrophils % 0 (0-10) % Lymphocytes % (Manual) 16 L (20-40) % Atypical Lymphs % 0 % Monocytes % (Manual) 2 (2-10) % Eosinophils % (Manual) 5 (0.7-5.8) % Basophils % (Manual) 0 L (0.1-1.2) Platelet Estimate Adequate Polychromasia 1+ slight Anisocytosis 1+ sligh RBC Morph Comment Abnormal PT 19.3 H (9.7-12.0) SECONDS INR 1.83 D-Dimer, Quantitative (0.19-0.50) mg/L Puncture Site ABG pH (7.35-7.45) ABG pCO2 (35.0-45.0) mmHg ABG pO2 (80.0-100.0) mmHg ABG HCO3 (22.0-26.0) meq/L ABG O2 Saturation (96.0-97.0) % ABG Base Excess (-2-2.0) Moses Test A-a Gradient mmHg O2 Delivery Device FiO2 (21.00-100.00) % Sodium 139 (136-145) mEq/L Potassium 3.8 (3.5-5.1) mEq/L Chloride 101 (98-107) mEq/L Carbon Dioxide 29 (21-32) mEq/L Anion Gap 12.8 (5-15) BUN 22 H (7-18) mg/dL Creatinine 1.2 H (0.55-1.02) mg/dL Est Cr Clr Drug Dosing 41.81 mL/min Estimated GFR (MDRD) 44 (>60) mL/min BUN/Creatinine Ratio 18.3 H (14-18) Glucose 146 H (70-99) mg/dL Lactic Acid (0.4-2.0) mmol/L Calcium 8.5 (8.5-10.1) mg/dL Magnesium 1.8 (1.8-2.4) mg/dL Total Bilirubin 0.9 (0.2-1.0) mg/dL AST 39 H (15-37) U/L ALT 41 (14-59) U/L Alkaline Phosphatase 67 (46-116) U/L Troponin I < 0.017 (0.00-0.056) ng/mL C-Reactive Protein 10.0 H* (<1.0) mg/dL NT-Pro-B Natriuret Pep (0-125) pg/mL Total Protein 6.8 (6.4-8.2) g/dl Albumin 3.2 L (3.4-5.0) g/dl Globulin 3.6 gm/dL Albumin/Globulin Ratio 0.9 L (1-2) TSH 3rd Generation 7.406 H (0.358-3.74) uIU/mL Urine Color (Yellow) Urine Appearance (Clear) Urine pH (5.0-8.0) Ur Specific [place] (1.005-1.030) Urine Protein (Negative) Urine Glucose (UA) (Negative) Urine Ketones (Negative) Urine Occult Blood (Negative) Urine Nitrite (Negative) Urine Bilirubin (Negative) Urine Urobilinogen (0.2-1.0) Ur Leukocyte Esterase (Negative) Urine RBC (0-5) /hpf Urine WBC (0-5) /hpf Ur Epithelial Cells (0-5) /hpf Urine Bacteria (FEW) /hpf Urine Mucus (FEW) /hpf SARS-CoV-2 RNA (JOSE ELIAS) (NEGATIVE) 08/03/21 08/03/21 08/03/21 Range/Units 05:30 05:30 05:30 WBC (3.98-10.04) K/mm3 RBC (3.98-5.22) M/mm3 Hgb (11.2-15.7) gm/dl Hct (34.1-44.9) % MCV (79.4-94.8) fl MCH (25.6-32.2) pg MCHC (32.2-35.5) g/dl RDW Std Deviation (36.4-46.3) fL Plt Count (182-369) K/mm3 MPV (9.4-12.3) fl Neutrophils % (Manual) (40-60) % Band Neutrophils % (0-10) % Lymphocytes % (Manual) (20-40) % Atypical Lymphs % % Monocytes % (Manual) (2-10) % Eosinophils % (Manual) (0.7-5.8) % Basophils % (Manual) (0.1-1.2) Platelet Estimate Polychromasia Anisocytosis RBC Morph Comment PT (9.7-12.0) SECONDS INR D-Dimer, Quantitative 0.33 (0.19-0.50) mg/L Puncture Site ABG pH (7.35-7.45) ABG pCO2 (35.0-45.0) mmHg ABG pO2 (80.0-100.0) mmHg ABG HCO3 (22.0-26.0) meq/L ABG O2 Saturation (96.0-97.0) % ABG Base Excess (-2-2.0) Moses Test A-a Gradient mmHg O2 Delivery Device FiO2 (21.00-100.00) % Sodium (136-145) mEq/L Potassium (3.5-5.1) mEq/L Chloride (98-107) mEq/L Carbon Dioxide (21-32) mEq/L Anion Gap (5-15) BUN (7-18) mg/dL Creatinine (0.55-1.02) mg/dL Est Cr Clr Drug Dosing mL/min Estimated GFR (MDRD) (>60) mL/min BUN/Creatinine Ratio (14-18) Glucose (70-99) mg/dL Lactic Acid 1.1 (0.4-2.0) mmol/L Calcium (8.5-10.1) mg/dL Magnesium (1.8-2.4) mg/dL Total Bilirubin (0.2-1.0) mg/dL AST (15-37) U/L ALT (14-59) U/L Alkaline Phosphatase (46-116) U/L Troponin I (0.00-0.056) ng/mL C-Reactive Protein (<1.0) mg/dL NT-Pro-B Natriuret Pep 662 H (0-125) pg/mL Total Protein (6.4-8.2) g/dl Albumin (3.4-5.0) g/dl Globulin gm/dL Albumin/Globulin Ratio (1-2) TSH 3rd Generation (0.358-3.74) uIU/mL Urine Color (Yellow) Urine Appearance (Clear) Urine pH (5.0-8.0) Ur Specific [place] (1.005-1.030) Urine Protein (Negative) Urine Glucose (UA) (Negative) Urine Ketones (Negative) Urine Occult Blood (Negative) Urine Nitrite (Negative) Urine Bilirubin (Negative) Urine Urobilinogen (0.2-1.0) Ur Leukocyte Esterase (Negative) Urine RBC (0-5) /hpf Urine WBC (0-5) /hpf Ur Epithelial Cells (0-5) /hpf Urine Bacteria (FEW) /hpf Urine Mucus (FEW) /hpf SARS-CoV-2 RNA (JOSE ELIAS) (NEGATIVE) 05/18/21 05/18/21 05/18/21 Range/Units 05:57 06:00 08:03 WBC (3.98-10.04) K/mm3 RBC (3.98-5.22) M/mm3 Hgb (11.2-15.7) gm/dl Hct (34.1-44.9) % MCV (79.4-94.8) fl MCH (25.6-32.2) pg MCHC (32.2-35.5) g/dl RDW Std Deviation (36.4-46.3) fL Plt Count (182-369) K/mm3 MPV (9.4-12.3) fl Neutrophils % (Manual) (40-60) % Band Neutrophils % (0-10) % Lymphocytes % (Manual) (20-40) % Atypical Lymphs % % Monocytes % (Manual) (2-10) % Eosinophils % (Manual) (0.7-5.8) % Basophils % (Manual) (0.1-1.2) Platelet Estimate Polychromasia Anisocytosis RBC Morph Comment PT (9.7-12.0) SECONDS INR D-Dimer, Quantitative (0.19-0.50) mg/L Puncture Site Lt radial ABG pH 7.46 H (7.35-7.45) ABG pCO2 37.5 (35.0-45.0) mmHg ABG pO2 62.0 L (80.0-100.0) mmHg ABG HCO3 26.2 H (22.0-26.0) meq/L ABG O2 Saturation 90.9 L (96.0-97.0) % ABG Base Excess 2.8 H (-2-2.0) Moses Test Positive A-a Gradient 40 mmHg O2 Delivery Device Room air FiO2 21.00 (21.00-100.00) % Sodium (136-145) mEq/L Potassium (3.5-5.1) mEq/L Chloride (98-107) mEq/L Carbon Dioxide (21-32) mEq/L Anion Gap (5-15) BUN (7-18) mg/dL Creatinine (0.55-1.02) mg/dL Est Cr Clr Drug Dosing mL/min Estimated GFR (MDRD) (>60) mL/min BUN/Creatinine Ratio (14-18) Glucose (70-99) mg/dL Lactic Acid (0.4-2.0) mmol/L Calcium (8.5-10.1) mg/dL Magnesium (1.8-2.4) mg/dL Total Bilirubin (0.2-1.0) mg/dL AST (15-37) U/L ALT (14-59) U/L Alkaline Phosphatase (46-116) U/L Troponin I (0.00-0.056) ng/mL C-Reactive Protein (<1.0) mg/dL NT-Pro-B Natriuret Pep (0-125) pg/mL Total Protein (6.4-8.2) g/dl Albumin (3.4-5.0) g/dl Globulin gm/dL Albumin/Globulin Ratio (1-2) TSH 3rd Generation (0.358-3.74) uIU/mL Urine Color Nida H (Yellow) Urine Appearance Clear (Clear) Urine pH 5.5 (5.0-8.0) Ur Specific [place] 1.015 (1.005-1.030) Urine Protein 1+ H (Negative) Urine Glucose (UA) Trace H (Negative) Urine Ketones Negative (Negative) Urine Occult Blood 1+ H (Negative) Urine Nitrite Positive H (Negative) Urine Bilirubin Negative (Negative) Urine Urobilinogen 1.0 (0.2-1.0) Ur Leukocyte Esterase Negative (Negative) Urine RBC 20-30 H (0-5) /hpf Urine WBC 0-5 (0-5) /hpf Ur Epithelial Cells 0-5 (0-5) /hpf Urine Bacteria Few (FEW) /hpf Urine Mucus Few (FEW) /hpf SARS-CoV-2 RNA (JOSE ELIAS) Negative (NEGATIVE) 05/18/21 Range/Units 11:00 WBC (3.98-10.04) K/mm3 RBC (3.98-5.22) M/mm3 Hgb (11.2-15.7) gm/dl Hct (34.1-44.9) % MCV (79.4-94.8) fl MCH (25.6-32.2) pg MCHC (32.2-35.5) g/dl RDW Std Deviation (36.4-46.3) fL Plt Count (182-369) K/mm3 MPV (9.4-12.3) fl Neutrophils % (Manual) (40-60) % Band Neutrophils % (0-10) % Lymphocytes % (Manual) (20-40) % Atypical Lymphs % % Monocytes % (Manual) (2-10) % Eosinophils % (Manual) (0.7-5.8) % Basophils % (Manual) (0.1-1.2) Platelet Estimate Polychromasia Anisocytosis RBC Morph Comment PT (9.7-12.0) SECONDS INR D-Dimer, Quantitative (0.19-0.50) mg/L Puncture Site ABG pH (7.35-7.45) ABG pCO2 (35.0-45.0) mmHg ABG pO2 (80.0-100.0) mmHg ABG HCO3 (22.0-26.0) meq/L ABG O2 Saturation (96.0-97.0) % ABG Base Excess (-2-2.0) Moses Test A-a Gradient mmHg O2 Delivery Device FiO2 (21.00-100.00) % Sodium (136-145) mEq/L Potassium (3.5-5.1) mEq/L Chloride (98-107) mEq/L Carbon Dioxide (21-32) mEq/L Anion Gap (5-15) BUN (7-18) mg/dL Creatinine (0.55-1.02) mg/dL Est Cr Clr Drug Dosing mL/min Estimated GFR (MDRD) (>60) mL/min BUN/Creatinine Ratio (14-18) Glucose (70-99) mg/dL Lactic Acid (0.4-2.0) mmol/L Calcium (8.5-10.1) mg/dL Magnesium (1.8-2.4) mg/dL Total Bilirubin (0.2-1.0) mg/dL AST (15-37) U/L ALT (14-59) U/L Alkaline Phosphatase (46-116) U/L Troponin I < 0.017 (0.00-0.056) ng/mL C-Reactive Protein (<1.0) mg/dL NT-Pro-B Natriuret Pep (0-125) pg/mL Total Protein (6.4-8.2) g/dl Albumin (3.4-5.0) g/dl Globulin gm/dL Albumin/Globulin Ratio (1-2) TSH 3rd Generation (0.358-3.74) uIU/mL Urine Color (Yellow) Urine Appearance (Clear) Urine pH (5.0-8.0) Ur Specific [place] (1.005-1.030) Urine Protein (Negative) Urine Glucose (UA) (Negative) Urine Ketones (Negative) Urine Occult Blood (Negative) Urine Nitrite (Negative) Urine Bilirubin (Negative) Urine Urobilinogen (0.2-1.0) Ur Leukocyte Esterase (Negative) Urine RBC (0-5) /hpf Urine WBC (0-5) /hpf Ur Epithelial Cells (0-5) /hpf Urine Bacteria (FEW) /hpf Urine Mucus (FEW) /hpf SARS-CoV-2 RNA (JOSE ELIAS) (NEGATIVE) Result Diagrams: 05/18/21 05:30 05/18/21 05:30 Sepsis Event Note - Evaluation Sepsis Screening Result: No Definite Risk - Focused Exam Vital Signs: Vital Signs Temp Temp Pulse Pulse Resp BP BP 05/18/21 12:25 64 119/93 H 05/18/21 12:19 98.4 F 65 20 05/18/21 09:44 20 05/18/21 09:41 99.3 F 77 103/55 L 05/18/21 07:48 99.8 F 05/18/21 06:21 05/18/21 05:19 97.7 F 73 16 97/61 Pulse Ox 05/18/21 12:25 97 05/18/21 12:19 95 05/18/21 09:44 05/18/21 09:41 97 05/18/21 07:48 05/18/21 06:21 94 L 05/18/21 05:19 90 L Problem List Initiated/Reviewed/Updated: Yes Orders Last 24hrs: Active Orders 24 hr Category Date Time Status Patient Status [ADT] Routine ADT 05/18/21 12:31 Active Intake and Output [RC] 04,16 Care 05/18/21 09:18 Active Oxygen Therapy [RC] PRN Care 05/18/21 09:18 Active Up With Assistance [RC] ASDIRECTED Care 05/18/21 09:18 Active VTE/DVT Education [RC] PER UNIT ROUTINE Care 05/18/21 09:18 Active Vital Signs [RC] Q4HR Care 05/18/21 09:18 Active Regular Diet [DIET] Diet 05/18/21 Breakfast Active BASIC METABOLIC PANEL,BMP [CHEM] AM Lab 05/19/21 05:11 Ordered BLOOD CULTURE [MREF] Stat Lab 05/18/21 06:15 Received BLOOD CULTURE [MREF] Stat Lab 05/18/21 06:25 Received CBC WITH AUTO DIFF [HEME] AM Lab 05/19/21 05:11 Ordered INR,PT,PROTHROMBIN TIME [COAG] DAILY Lab 05/19/21 10:20 Ordered INR,PT,PROTHROMBIN TIME [COAG] DAILY Lab 05/20/21 10:20 Ordered INR,PT,PROTHROMBIN TIME [COAG] DAILY Lab 05/21/21 10:20 Ordered TROPONIN I [CHEM] Routine Lab 05/18/21 17:00 Ordered Acetaminophen [TylenoL] Med 05/18/21 09:20 Active 650 mg PO Q6H PRN Lactated Ringers [Ringers, Lactated] 1,000 ml Med 05/18/21 09:30 Active IV ASDIRECTED Morphine Med 05/18/21 10:08 Active 2 mg IVPUSH Q1H PRN Ondansetron [Zofran] Med 05/18/21 09:18 Active 4 mg IV Q4H PRN Pharmacy to Dose - Warfarin Med 05/18/21 10:15 Active 1 dose .XX ASDIRECTED Sennosides [Senna] Med 05/18/21 13:00 Ordered 8.6 mg PO Q12H PRN Warfarin [Coumadin] Med 05/18/21 18:00 Once 2 mg PO ONETIME ONE oxyCODONE Med 05/18/21 09:18 Active 5 mg PO Q4H PRN Blood Culture x2 Reflex Set [OM.PC] Stat Oth 05/18/21 05:50 Ordered Resuscitation Status Routine Resus Stat 05/18/21 09:18 Ordered Medication Orders Acetaminophen (Acetaminophen 325 Mg Tab) 650 mg PO Q6H PRN PRN Reason: Pain (moderate 4-6) Lactated Ringer's (Ringers, Lactated) 1,000 mls @ 75 mls/hr IV ASDIRECTED [facility] Last Admin: 05/18/21 10:47 Dose: 75 mls/hr Documented by: SAI Morphine Sulfate (Morphine 2 Mg/Ml Syringe) 2 mg IVPUSH Q1H PRN PRN Reason: Other Ondansetron HCl (Ondansetron 4 Mg/2 Ml Sdv) 4 mg IV Q4H PRN PRN Reason: Nausea/Vomiting Oxycodone HCl (Oxycodone 5 Mg Tab) 5 mg PO Q4H PRN PRN Reason: Pain (moderate 4-6) Warfarin Sodium (Pharmacy To Dose - Warfarin) 1 dose .XX ASDIRECTED [facility] Warfarin Sodium (Warfarin 1 Mg Tab) 2 mg PO ONETIME ONE Stop: 05/18/21 18:01 Assessment/Plan Comment:: Assessment: This is a 70F hx of Fever, DVT (on warfarin) presenting with fever, chest pressure, and hypoxia. notable labs include normal WBC, normal Lactate, Troponin WNL. She was started on ceftriaxone in the ED and admitted for further evaluation. 1. Fever, presumed UTI 2. Chest pressure and hypoxia 3. Elevated BNP 4. Hx of DVT 5. Chronic anticoagulation on warfarin 6. Subtherapeutic INR 7. Hx of Hypertension 8. Hx of constipation 9. Hx of COVID 19 PNA 10. Presumed CKD? vs EDWARDO 11. Hypotension 12. Elevated TSH; will check Free T4 Plan -continue ceftriaxone -tele -serial troponin -echo -IVF given episode of hypotension -hold antihypertensives -warfarin pharm to dose -CT PE study; patient agreeable to test given concern for PE Code-Full DVT ppx-warfairn - Mortality Measure Prognosis:: Good
[2021-05-18] MEDS ORDERED: Iopamidol 755 Mg/ML 100 ML Bottle IVPUSH ONE (13:36)
[2021-05-18] MEDS ORDERED: Sodium Chloride 0.9% 10 ML Syringe FLUSH ONE (13:36)
[2021-05-18] MEDS ORDERED: Sodium Chloride 0.9% 100 ML IV SCH (13:45)
--- NOTE | 2021-05-18 14:32 | CT ---
CT chest Technique: Multiple axial sections were obtained from above the lung apices inferiorly through the lung bases. Intravenous contrast was utilized. Study has been performed as a pulmonary angiogram protocol. Comparison: Chest x-ray performed on the same day, no prior CT study is available. 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 Pulmonary arteries are well opacified. There are no filling defects being seen to indicate pulmonary embolism. Abdominal aorta shows atherosclerotic calcification with no aneurysm. Mediastinum and hilar regions show no adenopathy. Minimal coronary artery calcification is noted. No pericardial thickening is seen. Small portion of the visualized upper abdominal structures show nothing acute. Minimal scarring is seen within both lung apices. Minimal scarring is noted along the right paravertebral region and within both lung bases. No acute parenchymal change is definitely seen. Bone window settings were reviewed which show disc space narrowing and spurring within the thoracic spine. No acute osseous abnormality is appreciated. Impression: 1. 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 This is felt to be incidental. 2. No findings of pulmonary embolism are seen. 3. Other findings as noted above which are incidental. Nothing acute is seen. Diagnostic code #2
[2021-05-18] MEDS: Acetaminophen 325 MG Tab PO PRN ×2 (16:56→20:21)
[2021-05-19] MEDS: guaiFENesin/Dextromethorphan 100-10 MG/5 ML Soln 5 ML Cup PO PRN ×2 (00:48→08:42)
[2021-05-19] MEDS: Acetaminophen 325 MG Tab PO PRN ×2 (02:50→08:40)
[2021-05-19] MEDS ORDERED: Magnesium Hydroxide 400 MG/5 ML Susp 30 ML Cup PO ONE (06:16)
[2021-05-19] MEDS ORDERED: Potassium Chloride 20 MEQ Tab.ER PO ONE (07:07)
[2021-05-19] MEDS ORDERED: cefTRIAXone 1 GM in Sodium Chloride 0.9% 100 ML IV SCH ×2 (09:00)
--- NOTE | 2021-05-19 13:24 | PCM.DCSUM1 ---
Discharge Summary - Hospital Course HPI Initial Comments: CHARITY This is a 70F with PMhx noted below including hx of DVT (On warfarin), hx of COVID 19 PNA in October presenting for evaluation of Fever. The patient was seen in ED two days ago for evaluation of fever. She was ultimately discharged home. She has been commuting from [facility] to attend a in [place]. She has traveled by car. Today she developed a recurrent fever and thus presented back to ED for evaluation. She was noted to be hypoxic requiring supplemental oxygen. She denies chest pain but endorses chest pressure. She denies SOB. She endorses dysuria. In the ED her BNP was initially elevated. She was given lasix but subsequently became hypotensive and thus IVF was started. Her WBC and Lactate where WNL. She was started on ceftriaxone and admitted for further evaluation. HOSPITAL SUMMARY Assessment: This is a 70F hx of Fever, DVT (on warfarin) presenting with fever, chest pressure, and hypoxia. notable labs include normal WBC, normal Lactate, Troponin WNL. She was started on ceftriaxone in the ED and admitted for further evaluation. 1. Fever, presumed UTI; treated with ceftriaxone; discharge on omnicef for 5 days 2. Chest pressure and hypoxia 3. Elevated BNP 4. Hx of DVT 5. Chronic anticoagulation on warfarin 6. Subtherapeutic INR 7. Hx of Hypertension 8. Hx of constipation 9. Hx of COVID 19 PNA 10. EDWARDO 11. Hypotension; resolved 12. Elevated TSH; Free T4 Discharge Diagnosis Fever secondary to UTI Acute Kidney Injury-likely pre-renal; resolved Elevated TSH with normal FT4 Hx of DVT Hx of HTN Hx of HLD Obesity Echo-TTE Mild LV Hypertrophy Normal LV diastolic filling EF 55-60% Mild dilated left atrium Mild Aortic Valve Regurgitation Trace Mitral Valve Regurgitation Trace Tricuspid Valve Regurg Diagnosis: Stroke: No - Discharge Data Discharge Date: 05/19/21 Discharge Disposition: Home, Self-Care 01 Condition: Good - Referral to Home Health Primary Care Physician: PCP Not In Area - Discharge Plan *PRESCRIPTION DRUG MONITORING PROGRAM REVIEWED*: Not Applicable *COPY OF PRESCRIPTION DRUG MONITORING REPORT IN PATIENT HENRIQUE: Not Applicable Prescriptions/Med Rec: Cefdinir [Omnicef] 300 mg PO BID #10 cap Home Medications: Home Meds Valsartan 160 mg PO DAILY 05/16/21 [History] Warfarin [Coumadin] 1 - 2 mg PO ASDIRECTED 05/16/21 [History] atenoloL [Atenolol] 100 mg PO DAILY 05/16/21 [History] hydroCHLOROthiazide [Hydrochlorothiazide] 25 mg PO DAILY 05/16/21 [History] Phenazopyridine HCl [Pyridium] 1 tab PO DAILY 05/18/21 [History] Rosuvastatin Calcium 40 mg PO DAILY 05/18/21 [History] Cefdinir [Omnicef] 300 mg PO BID #10 cap 05/19/21 [Rx] Oxygen Therapy Mode: Room Air Patient Handouts: Heart Failure Action Plan Forms: ED Department Discharge Referrals: Kade Patel [Other] - 05/24/21 8:00 am (This is patients Primary Provider) - Discharge Summary/Plan Comment DC Time >30 min.: Yes (35 minutes) - General Info Functional Status: Reports: Pain Controlled - Review of Systems General: Reports: No Symptoms HEENT: Reports: No Symptoms Pulmonary: Reports: No Symptoms Cardiovascular: Reports: No Symptoms Gastrointestinal: Reports: No Symptoms Skin: Reports: No Symptoms Neurological: Reports: No Symptoms Psychiatric: Reports: No Symptoms - Patient Data Vitals - Most Recent: Last Vital Signs Temp 98.1 F 05/19/21 11:05 Pulse 69 05/19/21 11:05 Resp 14 05/19/21 11:05 BP 104/48 L 05/19/21 11:05 Pulse Ox 94 L 05/19/21 11:05 Orthostatic Blood Pressure [ 93/50 Standing] Orthostatic Blood Pressure [ 93/52 Sitting] Orthostatic Blood Pressure [ 105/49 Supine] Weight - Most Recent: 218 lb 14.4 oz I&O - Last 24 hours: Intake & Output 05/18/21 05/19/21 05/19/21 22:59 06:59 14:59 Intake Total 632 150 Output Total 1500 1400 Balance -868 1250 Lab Results - Last 24 hrs: Laboratory Results - last 24 hr 05/18/21 05/18/21 05/19/21 Range/Units 11:00 16:58 05:44 WBC 5.36 (3.98-10.04) K/mm3 RBC 3.86 L (3.98-5.22) M/mm3 Hgb 10.7 L (11.2-15.7) gm/dl Hct 34.2 (34.1-44.9) % MCV 88.6 (79.4-94.8) fl MCH 27.7 (25.6-32.2) pg MCHC 31.3 L (32.2-35.5) g/dl RDW Std Deviation 50.2 H (36.4-46.3) fL Plt Count 231 (182-369) K/mm3 MPV 9.4 (9.4-12.3) fl Neut % (Auto) 48.8 (34.0-71.1) % Lymph % (Auto) 34.9 (19.3-51.7) % [place]ole % (Auto) 8.4 (4.7-12.5) % Eos % (Auto) 7.1 H (0.7-5.8) Baso % (Auto) 0.6 (0.1-1.2) % Neut # (Auto) 2.62 (1.56-6.13) K/mm3 Lymph # (Auto) 1.87 (1.18-3.74) K/mm3 [place]ole # (Auto) 0.45 H (0.24-0.36) K/mm3 Eos # (Auto) 0.38 H (0.04-0.36) K/mm3 Baso # (Auto) 0.03 (0.01-0.08) K/mm3 PT (9.7-12.0) SECONDS INR Sodium (136-145) mEq/L Potassium (3.5-5.1) mEq/L Chloride (98-107) mEq/L Carbon Dioxide (21-32) mEq/L Anion Gap (5-15) BUN (7-18) mg/dL Creatinine (0.55-1.02) mg/dL Est Cr Clr Drug Dosing mL/min Estimated GFR (MDRD) (>60) mL/min BUN/Creatinine Ratio (14-18) Glucose (70-99) mg/dL Calcium (8.5-10.1) mg/dL Troponin I < 0.017 (0.00-0.056) ng/mL Free T4 0.97 (0.76-1.46) ng/dL 05/19/21 05/19/21 Range/Units 05:44 10:18 WBC (3.98-10.04) K/mm3 RBC (3.98-5.22) M/mm3 Hgb (11.2-15.7) gm/dl Hct (34.1-44.9) % MCV (79.4-94.8) fl MCH (25.6-32.2) pg MCHC (32.2-35.5) g/dl RDW Std Deviation (36.4-46.3) fL Plt Count (182-369) K/mm3 MPV (9.4-12.3) fl Neut % (Auto) (34.0-71.1) % Lymph % (Auto) (19.3-51.7) % [place]ole % (Auto) (4.7-12.5) % Eos % (Auto) (0.7-5.8) Baso % (Auto) (0.1-1.2) % Neut # (Auto) (1.56-6.13) K/mm3 Lymph # (Auto) (1.18-3.74) K/mm3 [place]ole # (Auto) (0.24-0.36) K/mm3 Eos # (Auto) (0.04-0.36) K/mm3 Baso # (Auto) (0.01-0.08) K/mm3 PT 22.4 H (9.7-12.0) SECONDS INR 2.12 Sodium 147 H (136-145) mEq/L Potassium 3.3 L (3.5-5.1) mEq/L Chloride 108 H (98-107) mEq/L Carbon Dioxide 29 (21-32) mEq/L Anion Gap 13.3 (5-15) BUN 20 H (7-18) mg/dL Creatinine 1.0 (0.55-1.02) mg/dL Est Cr Clr Drug Dosing 50.18 mL/min Estimated GFR (MDRD) 55 (>60) mL/min BUN/Creatinine Ratio 20.0 H (14-18) Glucose 126 H (70-99) mg/dL Calcium 8.9 (8.5-10.1) mg/dL Troponin I (0.00-0.056) ng/mL Free T4 (0.76-1.46) ng/dL [facility] Results - Last 24 hrs: Microbiology 05/18/21 06:15 Blood Culture - Preliminary Blood - Venous 05/18/21 06:25 Blood Culture - Preliminary Blood - Venous - Lab Draw Med Orders - Current: Current Medications Acetaminophen (Acetaminophen 325 Mg Tab) 650 mg PO Q6H PRN PRN Reason: Pain (moderate 4-6) Last Admin: 05/19/21 08:40 Dose: 650 mg Documented by: Atenolol (Atenolol 50 Mg Tab) 100 mg PO DAILY [facility] Guaifenesin/Phenylephrine HCl (Guaifenesin/Dextromethorphan 100-10 Mg/5 Ml Soln 5 Ml Cup) 10 ml PO QID PRN PRN Reason: Cough Last Admin: 05/19/21 08:42 Dose: 10 ml Documented by: Hydrochlorothiazide (Hydrochlorothiazide 25 Mg Tab) 25 mg PO DAILY [facility] Ceftriaxone Sodium 1 gm/ (Sodium Chloride) 100 mls @ 200 mls/hr IV Q24H [facility] Last Admin: 05/19/21 08:42 Dose: 200 mls/hr Documented by: Losartan Potassium (Losartan 100 Mg Tab) 100 mg PO DAILY [facility] Morphine Sulfate (Morphine 2 Mg/Ml Syringe) 2 mg IVPUSH Q1H PRN PRN Reason: Other Ondansetron HCl (Ondansetron 4 Mg/2 Ml Sdv) 4 mg IV Q4H PRN PRN Reason: Nausea/Vomiting Oxycodone HCl (Oxycodone 5 Mg Tab) 5 mg PO Q4H PRN PRN Reason: Pain (moderate 4-6) Phenazopyridine HCl (Phenazopyridine 95 Mg Tab) 95 mg PO DAILY [facility] Rosuvastatin Calcium (Rosuvastatin 10 Mg Tab) 40 mg PO DAILY [facility] Senna (Sennosides 8.6 Mg Tab) 8.6 mg PO Q12H PRN PRN Reason: Constipation Last Admin: 05/18/21 20:20 Dose: 8.6 mg Documented by: Warfarin Sodium (Pharmacy To Dose - Warfarin) 1 dose .XX ASDIRECTED [facility] Discontinued Medications Acetaminophen (Acetaminophen 325 Mg Tab) 975 mg PO ONETIME ONE Stop: 05/18/21 07:38 Last Admin: 05/18/21 07:48 Dose: 975 mg Documented by: Furosemide (Furosemide 40 Mg/4 Ml Vial) 40 mg IVPUSH NOW ONE Stop: 05/18/21 07:38 Last Admin: 05/18/21 07:49 Dose: 40 mg Documented by: Heparin Sodium (Porcine) (Heparin Sodium 5,000 Units/Ml Vial) 5,000 units SUBCUT Q8H [facility] Sodium Chloride (Normal Saline) 1,000 mls @ 999 mls/hr IV ONETIME ONE Stop: 05/18/21 06:51 Last Admin: 05/18/21 06:03 Dose: 999 mls/hr Documented by: Ceftriaxone Sodium 2 gm/ (Sodium Chloride) 100 mls @ 200 mls/hr IV ONETIME ONE Stop: 05/18/21 08:47 Last Admin: 05/18/21 08:31 Dose: 200 mls/hr Documented by: Sodium Chloride (Normal Saline) 1,000 mls @ 900 mls/hr IV ONETIME ONE Stop: 05/18/21 09:36 Last Admin: 05/18/21 09:11 Dose: 900 mls/hr Documented by: Lactated Ringer's (Ringers, Lactated) 1,000 mls @ 75 mls/hr IV ASDIRECTED [facility] Last Admin: 05/18/21 10:47 Dose: 75 mls/hr Documented by: Sodium Chloride (Normal Saline) 100 mls @ 60 mls/hr IV ASDIRECTED [facility] Stop: 05/18/21 16:00 Last Admin: 05/18/21 13:52 Dose: 60 mls/hr Documented by: Iopamidol (Iopamidol 755 Mg/Ml 100 Ml Bottle) 100 ml IVPUSH ONETIME ONE Stop: 05/18/21 13:37 Last Admin: 05/18/21 13:51 Dose: 100 ml Documented by: Levothyroxine Sodium (Levothyroxine 75 Mcg Tab) 75 mcg PO ONETIME ONE Stop: 05/18/21 07:41 Last Admin: 05/18/21 07:48 Dose: 75 mcg Documented by: Magnesium Hydroxide (Magnesium Hydroxide 400 Mg/5 Ml Susp 30 Ml Cup) 30 ml PO ONETIME ONE Stop: 05/19/21 06:17 Last Admin: 05/19/21 06:24 Dose: 30 ml Documented by: Potassium Chloride (Potassium Chloride 20 Meq Tab.Er) 40 meq PO ONETIME ONE Stop: 05/19/21 07:08 Last Admin: 05/19/21 08:42 Dose: 40 meq Documented by: Sodium Chloride (Sodium Chloride 0.9% 10 Ml Syringe) 10 ml FLUSH ONETIME ONE Stop: 05/18/21 13:37 Last Admin: 05/18/21 13:52 Dose: 10 ml Documented by: Warfarin Sodium (Warfarin 1 Mg Tab) 1 mg PO TUTH [facility] Warfarin Sodium (Warfarin 1 Mg Tab) 2 mg PO SUMOWEFRSA [facility] Warfarin Sodium (Warfarin 1 Mg Tab) 2 mg PO ONETIME ONE Stop: 05/18/21 18:01 Last Admin: 05/18/21 17:03 Dose: 2 mg Documented by: - Exam General: Reports: Alert, Oriented HEENT: Reports: Pupils Equal, EOMI, Mucous Membr. Moist/[place] Neck: Reports: Supple Lungs: Reports: Clear to Auscultation, Normal Respiratory Effort Cardiovascular: Reports: Regular Rate, Regular Rhythm GI/Abdominal Exam: Normal Bowel Sounds, Soft, Non-Tender Skin: Reports: Warm, Dry, Intact Neurological: Reports: No New Focal Deficit Psy/Mental Status: Reports: Alert, Normal Affect, Normal Mood *Q Meaningful Use (DIS) - VTE *Q VTE Criteria *Q: 3
[2021-05-20] MEDS ORDERED: Phenazopyridine 95 MG Tab PO SCH (09:00)
[2021-05-20] MEDS ORDERED: Hydrochlorothiazide 25 MG Tab PO SCH (09:00)
[2021-05-20] MEDS ORDERED: Losartan 100 MG Tab PO SCH (09:00)
[2021-05-20] MEDS ORDERED: Atenolol 50 MG Tab PO SCH (09:00)
[2021-05-20] MEDS ORDERED: Rosuvastatin 10 MG Tab PO SCH (09:00)
== END 2021-05-19 14:55 | disposition home or self-care (01) | DRG 690 ==
LOC: JD.ED 05:11 → UNDOADMIN 08:44 → JD.MS 08:44
PROVIDERS: ADMIT Hospitalist; ATTEND Hospitalist
DX: R50.9 Fever, unspecified (principal); N39.0 Urinary tract infection, site not specified; I50.9 Heart failure, unspecified; E03.9 Hypothyroidism, unspecified; N17.9 Acute kidney failure, unspecified; I11.0 Hypertensive heart disease with heart failure; Z87.898 Personal history of other specified conditions; R07.89 Other chest pain; R09.02 Hypoxemia; R79.1 Abnormal coagulation profile; D68.51 Activated protein C resistance; I10 Essential (primary) hypertension; K59.00 Constipation, unspecified; I95.9 Hypotension, unspecified; R79.89 Other specified abnormal findings of blood chemistry; E78.5 Hyperlipidemia, unspecified; E66.9 Obesity, unspecified; E78.00 Pure hypercholesterolemia, unspecified; K59.09 Other constipation; Z20.822 Contact with and (suspected) exposure to COVID-19; R33.9 Retention of urine, unspecified; R73.03 Prediabetes; Z98.890 Other specified postprocedural states; Z86.718 Personal history of other venous thrombosis and embolism; Z79.01 Long term (current) use of anticoagulants; Z86.16 Personal history of COVID-19; Z79.899 Other long term (current) drug therapy; Z88.8 Allergy status to other drugs, medicaments and biological substances; Z87.891 Personal history of nicotine dependence; Z68.27 Body mass index [BMI] 27.0-27.9, adult
CPT/HCPCS: 36415; 36600; 71046; 80053; 81001; 82803; 83605; 83735; 83880; 84443; 84484; 85007; 85027; 85379; 85610; 86140; 87040 ×2; 87086; 93005; A9270 ×2; J0696; J1940; J7030; U0002; 71275; 71275-26; 80048; 84439; 85025; 93010; 93306; 94761; 96365; 96375; 99222; 99239; 99285; 99285-25; J7120; Q9967